=== PATIENT | female | born 1995 | race American Indian/Alaskan Native ===

== ENCOUNTER 2017-02-10 10:59 | Emergency (ER) | payer SELFPAY ==
--- NOTE | 2017-02-10 11:49 | Emergency Department Report ---
Stated Complaint: THROWING UP, ABD PAIN, FAINTING Time Seen by Provider: 02/10/17 11:47 - HPI History of Present Illness: PT reports intermittently vomiting liquid x weeks PT states her lmp was 4 months ago, hx of irregular period - ROS Review of Systems: + n/v + diarrhea - dysuria - Exam Physical Exam: PT looks well, non toxic thin abd soft and non tender MSE screening note: Focused history and physical exam performed. Due to findings the following was ordered: labs ED Disposition for MSE Condition: Stable
[2017-02-10 13:11] LABS: Basophils % (Auto) 0.2 % (0.0-1.8); Eosinophils % (Auto) 0.3 % (0.0-4.3); Hematocrit 34.7 % (30.3-42.9); Hemoglobin 11.5 gm/dl (10.1-14.3); Mean Corpuscular HGB Conc 33 % (30-34); Mean Corpuscular Hemoglobin 30 pg (28-32); Mean Corpuscular Volume 91 fl (79-97); Platelet Count 260 K/mm3 (140-440); Red Blood Count 3.83 M/mm3 (3.65-5.03); White Blood Count 6.5 K/mm3 (4.5-11.0)
[2017-02-10 13:23] LABS: Alanine Aminotransferase 13 units/L (7-56); Albumin/Globulin Ratio 1.1 %; Alkaline Phosphatase 51 units/L (35-129); Anion Gap 21 mmol/L; Blood Urea Nitrogen 5 mg/dL (7-17); Calcium 8.9 mg/dL (8.4-10.2); Carbon Dioxide 21 mmol/L (22-30); Chloride 97.5 mmol/L (98-107); Glucose 96 mg/dL (65-100); Lipase 48 units/L (13-60); Sodium 135 mmol/L (137-145); Total Protein 7.8 g/dL (6.3-8.2)
[2017-02-10 14:19] LABS: Bacteria,Urine 4+ /HPF (Negative); Bilirubin,Urine NEG (Negative); Blood,Urine NEG (Negative); Ketones,Urine 80 mg/dL (Negative); Leukocyte Esterase,Urine TR (Negative); Mucus,Urine 2+ /HPF; Nitrite,Urine POS (Negative)
--- NOTE | 2017-02-10 15:25 | Ultrasound Report ---
Gestation: single Position: BREECH Placenta: Rt. lateral Placental Grade: 1 Heart Rate: 152 BPM Cervical length: 3.1 cm (Normal > 3 cm) x It is too early for a anatomical survey The following are not demonstrated due to maternal body habitus or lie: BPD: 2.6 cm = 14 w 4 d HC: 9.6 cm = 14 w 3 d AC: 8.0 cm = 14 w 2 d FL: 1.5 cm = 14 w 3 d HC/AC Ratio: 1.2 Cephalic Index: 85.7 Estimated Weight: N/A grams US Gest. Age = 14 w 3 d EDC: 08/08/17
[2017-02-10] MEDS ORDERED: ZOFRAN ODT PO ONE (19:41)
[2017-02-10 20:00] VITALS: BP 101/71
--- NOTE | 2017-02-10 20:26 | Emergency Department Report ---
ED General Adult HPI - General Chief complaint: Nausea/Vomiting/Diarrhea Stated complaint: THROWING UP, ABD PAIN, FAINTING Time Seen by Provider: 02/10/17 11:47 Source: patient Mode of arrival: Ambulatory Limitations: No Limitations - History of Present Illness Initial comments: Patient is a 21-year-old female who presents for nausea and vomiting. Patient states that she has been vomiting for the last couple weeks. She states that she had some green vomit there is no blood. She states that she often vomits in the morning and she has some slight abdominal pain when she vomits. Patient is also at 14 weeks. Nothing makes her symptoms better or worse her vomiting is most often when she wakes up in the morning. Severity scale (0 -10): 0 - Related Data Previous Rx's Medication Instructions Recorded Last Taken Type oxyCODONE /ACETAMINOPHEN [Percocet 1 tab PO Q4HR #20 tab 11/25/15 Unknown Rx 5/325] Ondansetron [Zofran TAB] 4 mg PO Q8HR PRN #15 tablet 02/10/17 Unknown Rx Allergies Allergy/AdvReac Type Severity Reaction Status Date / Time No Known Allergies Allergy Verified 05/20/13 15:26 ED Review of Systems ROS: Stated complaint: THROWING UP, ABD PAIN, FAINTING Other details as noted in HPI Constitutional: denies: chills, fever Eyes: denies: eye pain, eye discharge, vision change ENT: denies: ear pain, throat pain Respiratory: denies: cough, shortness of breath, wheezing Cardiovascular: denies: chest pain, palpitations Endocrine: no symptoms reported Gastrointestinal: nausea, vomiting. denies: abdominal pain, diarrhea Genitourinary: denies: urgency, dysuria, discharge Musculoskeletal: denies: back pain, joint swelling, arthralgia Skin: denies: rash, lesions Neurological: denies: headache, weakness, paresthesias Psychiatric: denies: anxiety, depression Hematological/Lymphatic: denies: easy bleeding, easy bruising ED Past Medical Hx - Past Medical History Previous Medical History?: No Hx Hypertension: No Hx Congestive Heart Failure: No Hx Diabetes: No Hx Deep Vein Thrombosis: No Hx Renal Disease: No Hx Sickle Cell Disease: No Hx Seizures: No Hx Asthma: No Hx COPD: No Hx HIV: No - Surgical History Past Surgical History?: Yes Additional Surgical History: c section - Social History Smoking Status: Never Smoker Substance Use Type: None - Medications Home Medications: Home Medications Medication Instructions Recorded Confirmed Last Taken Type oxyCODONE /ACETAMINOPHEN [Percocet 1 tab PO Q4HR #20 tab 11/25/15 Unknown Rx 5/325] Ondansetron [Zofran TAB] 4 mg PO Q8HR PRN #15 tablet 02/10/17 Unknown Rx ED Physical Exam - General Limitations: No Limitations General appearance: alert, in no apparent distress - Head Head exam: Present: atraumatic, normocephalic - Eye Eye exam: Present: normal appearance - ENT ENT exam: Present: mucous membranes moist - Neck Neck exam: Present: normal inspection - Respiratory Respiratory exam: Present: normal lung sounds bilaterally. Absent: respiratory distress - Cardiovascular Cardiovascular Exam: Present: regular rate, normal rhythm. Absent: systolic murmur, diastolic murmur, rubs, gallop - GI/Abdominal GI/Abdominal exam: Present: soft, normal bowel sounds - Extremities Exam Extremities exam: Present: normal inspection - Back Exam Back exam: Present: normal inspection - Neurological Exam Neurological exam: Present: alert, oriented X3 - Psychiatric Psychiatric exam: Present: normal affect, normal mood - Skin Skin exam: Present: warm, dry, intact, normal color. Absent: rash ED Course Vital Signs 02/10/17 02/10/17 02/10/17 11:46 15:47 15:55 Temperature 97.8 F Pulse Rate 76 90 Respiratory 16 18 16 Rate Blood Pressure 102/71 Blood Pressure 102/61 [Right] O2 Sat by Pulse 100 100 Oximetry 02/10/17 19:58 Temperature 99.2 F Pulse Rate 88 Respiratory 18 Rate Blood Pressure Blood Pressure 101/71 [Right] O2 Sat by Pulse 100 Oximetry ED Medical Decision Making - Lab Data Result diagrams: 02/10/17 12:46 02/10/17 12:46 Lab Results 02/10/17 02/10/17 02/10/17 Range/Units 12:46 12:46 12:46 WBC 6.5 (4.5-11.0) K/mm3 RBC 3.83 (3.65-5.03) M/mm3 Hgb 11.5 (10.1-14.3) gm/dl Hct 34.7 (30.3-42.9) % MCV 91 (79-97) fl MCH 30 (28-32) pg MCHC 33 (30-34) % RDW 13.0 L (13.2-15.2) % Plt Count 260 (140-440) K/mm3 Lymph % (Auto) 13.6 (13.4-35.0) % [place] % (Auto) 7.8 H (0.0-7.3) % Eos % (Auto) 0.3 (0.0-4.3) % Baso % (Auto) 0.2 (0.0-1.8) % Lymph # 0.9 L (1.2-5.4) K/mm3 [place] # 0.5 (0.0-0.8) K/mm3 Eos # 0.0 (0.0-0.4) K/mm3 Baso # 0.0 (0.0-0.1) K/mm3 Seg Neutrophils % 78.1 H (40.0-70.0) % Seg Neutrophils # 5.1 (1.8-7.7) K/mm3 Sodium 135 L (137-145) mmol/L Potassium 4.0 (3.6-5.0) mmol/L Chloride 97.5 L (98-107) mmol/L Carbon Dioxide 21 L (22-30) mmol/L Anion Gap 21 mmol/L BUN 5 L (7-17) mg/dL Creatinine 0.5 L (0.7-1.2) mg/dL Estimated GFR > 60 ml/min BUN/Creatinine Ratio 10.00 % Glucose 96 (65-100) mg/dL Calcium 8.9 (8.4-10.2) mg/dL Total Bilirubin 0.50 (0.1-1.2) mg/dL AST 20 (5-40) units/L ALT 13 (7-56) units/L Alkaline Phosphatase 51 (35-129) units/L Total Protein 7.8 (6.3-8.2) g/dL Albumin 4.0 (3.9-5) g/dL Albumin/Globulin Ratio 1.1 % Lipase 48 (13-60) units/L HCG, Qual Positive (Negative) HCG, Quant (0-4) mIU/mL Urine Color (Yellow) Urine Turbidity (Clear) Urine pH (5.0-7.0) Ur Specific [place] (1.003-1.030) Urine Protein (Negative) mg/dL Urine Glucose (UA) (Negative) mg/dL Urine Ketones (Negative) mg/dL Urine Blood (Negative) Urine Nitrite (Negative) Urine Bilirubin (Negative) Urine Urobilinogen (<2.0) mg/dL Ur Leukocyte Esterase (Negative) Urine WBC (Auto) (0.0-6.0) /HPF Urine RBC (Auto) (0.0-6.0) /HPF U Epithel Cells (Auto) (0-13.0) /HPF Urine Bacteria (Auto) (Negative) /HPF Urine Mucus /HPF Blood Type 02/10/17 02/10/17 02/10/17 Range/Units 13:58 14:24 14:24 WBC (4.5-11.0) K/mm3 RBC (3.65-5.03) M/mm3 Hgb (10.1-14.3) gm/dl Hct (30.3-42.9) % MCV (79-97) fl MCH (28-32) pg MCHC (30-34) % RDW (13.2-15.2) % Plt Count (140-440) K/mm3 Lymph % (Auto) (13.4-35.0) % [place] % (Auto) (0.0-7.3) % Eos % (Auto) (0.0-4.3) % Baso % (Auto) (0.0-1.8) % Lymph # (1.2-5.4) K/mm3 [place] # (0.0-0.8) K/mm3 Eos # (0.0-0.4) K/mm3 Baso # (0.0-0.1) K/mm3 Seg Neutrophils % (40.0-70.0) % Seg Neutrophils # (1.8-7.7) K/mm3 Sodium (137-145) mmol/L Potassium (3.6-5.0) mmol/L Chloride (98-107) mmol/L Carbon Dioxide (22-30) mmol/L Anion Gap mmol/L BUN (7-17) mg/dL Creatinine (0.7-1.2) mg/dL Estimated GFR ml/min BUN/Creatinine Ratio % Glucose (65-100) mg/dL Calcium (8.4-10.2) mg/dL Total Bilirubin (0.1-1.2) mg/dL AST (5-40) units/L ALT (7-56) units/L Alkaline Phosphatase (35-129) units/L Total Protein (6.3-8.2) g/dL Albumin (3.9-5) g/dL Albumin/Globulin Ratio % Lipase (13-60) units/L HCG, Qual (Negative) HCG, Quant 02548 H (0-4) mIU/mL Urine Color Yellow (Yellow) Urine Turbidity Clear (Clear) Urine pH 5.0 (5.0-7.0) Ur Specific [place] 1.019 (1.003-1.030) Urine Protein 30 mg/dl (Negative) mg/dL Urine Glucose (UA) Neg (Negative) mg/dL Urine Ketones 80 (Negative) mg/dL Urine Blood Neg (Negative) Urine Nitrite Pos (Negative) Urine Bilirubin Neg (Negative) Urine Urobilinogen 2.0 (<2.0) mg/dL Ur Leukocyte Esterase Tr (Negative) Urine WBC (Auto) 4.0 (0.0-6.0) /HPF Urine RBC (Auto) 3.0 (0.0-6.0) /HPF U Epithel Cells (Auto) 24.0 H (0-13.0) /HPF Urine Bacteria (Auto) 4+ (Negative) /HPF Urine Mucus 2+ /HPF Blood Type AB POSITIVE - Medical Decision Making Chief medical diagnosis: Differential diagnosis: Urinary tract infection, hyperemesis gravidarum, metabolic abnormality I will get CBC, CMP, urinalysis oral antiemetic and I will get a transvaginal ultrasound Patient's lab work is unremarkable patient has a 14 she most likely has morning sickness also patient home with a prescription for Zofran and follow up with [facility]. She agrees with plan additional verbal discharge instructions were given. Patient has been able to tolerate by mouth trial after oral Zofran. Critical care attestation.: If time is entered above; I have spent that time in minutes in the direct care of this critically ill patient, excluding procedure time. ED Disposition Clinical Impression: Qualifiers: Weeks of gestation: 14 weeks Qualified Code(s): Z3A.14 - 14 weeks gestation of Nausea & vomiting Qualifiers: Vomiting type: unspecified Vomiting Intractability: non-intractable Qualified Code(s): R11.2 - Nausea with vomiting, unspecified Disposition: DC-01 TO HOME OR SELFCARE Is pt being admited?: No Does the pt Need Aspirin: No Condition: Stable Instructions: Morning Sickness (ED) Prescriptions: Ondansetron [Zofran TAB] 4 mg PO Q8HR PRN #15 tablet PRN Reason: Nausea Referrals: PRIMARY CARE, [Primary Care Provider] - 3-5 Days ENA LATIF MD [Staff Physician] - 3-5 Days
== END 2017-02-10 20:43 | disposition home or self-care (01) ==
LOC: ED 10:59
DX: O21.0 Mild hyperemesis gravidarum (principal); Z3A.14 14 weeks gestation of pregnancy
CPT/HCPCS: 36415; 76805; 80053; 81001; 83690; 84702; 84703; 85025; 86900; 86901; Q0162

== ENCOUNTER 2017-07-15 13:44 | Outpatient (CLI) | payer MEDICAID ==
[2017-07-15 14:03] VITALS: BP 82/52
== END 2017-07-15 14:30 | disposition home or self-care (01) ==
LOC: TRG 13:44
PROVIDERS: ATTEND Obstetrics & Gynecology
DX: O47.03 False labor before 37 completed weeks of gestation, third trimester (principal); Z3A.36 36 weeks gestation of pregnancy
CPT/HCPCS: 59025

== ENCOUNTER 2017-08-18 17:35 | Inpatient (IN) | payer MEDICAID ==
[2017-08-18 18:09] VITALS: BP 113/57
[2017-08-18 19:03] LABS: Bilirubin,Urine NEG (Negative); Blood,Urine MOD (Negative); Color,Urine Yellow (Yellow); Mucus,Urine FEW /HPF; Protein,Urine <15 mg/dL mg/dL (Negative); Urobilinogen,Urine < 2.0 mg/dL (<2.0)
[2017-08-18 20:03] LABS: Basophils % (Auto) 0.4 % (0.0-1.8); Eosinophils # (Auto) 0.1 K/mm3 (0.0-0.4); Eosinophils % (Auto) 3.1 % (0.0-4.3); Hematocrit 30.2 % (30.3-42.9); Hemoglobin 10.1 gm/dl (10.1-14.3); Lymphocytes # (Auto) 1.3 K/mm3 (1.2-5.4); Lymphocytes % (Auto) 26.9 % (13.4-35.0); Mean Corpuscular HGB Conc 34 % (30-34); Mean Corpuscular Hemoglobin 32 pg (28-32); Mean Corpuscular Volume 94 fl (79-97); Monocytes # (Auto) 0.4 K/mm3 (0.0-0.8); Monocytes % (Auto) 9.5 % (0.0-7.3); Platelet Count 304 K/mm3 (140-440); Red Blood Count 3.21 M/mm3 (3.65-5.03); Red Cell Distribution Width 17.6 % (13.2-15.2)
[2017-08-18] MEDS ORDERED: LACTATED RINGERS 1,000 ML ONE (20:10)
--- NOTE | 2017-08-18 20:15 | History and Physical Report ---
History of Present Illness Date of examination: 08/18/17 Chief complaint: 3rd Repeat History of present illness: Pt is a 21 yo at 41+2 weeks who presents with complaint of ruptured membranes, she is a [facility] patient. Essential history this patient with noncompliance with care desired a . She was previously counseled that due to her prior C-sections the risk of rupture would be elevated and repeat C- section was unlikely. Patient however insisted on and has only had 3-4 visits in the clinic. In triage today, BPP obtained is 8 out of 8 and LOIVIA is over 10. Tracing is category 1 Had a discussion with her and her partner about . Explained that the risk of rupture is now about ~ 4% due to her 2 prior C-sections. Explained that I usually do not offer VBACs after 2 prior C-sections. Did explain that some higher institutions with the residents and it support analyst may be willing to offer after 2 prior C-sections. Explained that due to the BPP and testing done, she is stable enough if she wishes to leave my care. She and her partner have decided to proceed with repeat . Did review the risks of surgery in detail including the increased risk of injury to surrounding organs and tissues. Currently denies vaginal bleeding plus movement Past History Past Medical History: no pertinent history, other (Sickle cell trait) Past Surgical History: section (x 2) AMBULATORY NURSE History: other (patient denies prior history of STDs). denies: chlamydia, gonorrhea, hepatitis B, hepatitis C, herpes, HIV Social history: single, full code. denies: Lives alone, lives with family, smoking, alcohol abuse, IV drug use - Obstetrical History Expected Date of Delivery: 08/09/17 Actual Gestation: 41 Week(s) 2 Day(s) : 3 Para: 2 Number of Living Children: 2 Medications and Allergies Allergies Allergy/AdvReac Type Severity Reaction Status Date / Time No Known Allergies Allergy Verified 05/20/13 15:26 Home Medications Medication Instructions Recorded Confirmed Last Taken Type oxyCODONE /ACETAMINOPHEN [Percocet 1 tab PO Q4HR #20 tab 11/25/15 Unknown Rx 5/325] Ondansetron [Zofran TAB] 4 mg PO Q8HR PRN #15 tablet 09/26/17 Unknown Rx Review of Systems Constitutional: no fever, no chills, no fatigue, no weakness, no lethargy, no chronic pain Eyes: no diplopia, no photophobia Cardiovascular: no chest pain, no orthopnea, no edema, no syncope, no lightheadedness, no shortness of breath, no dyspnea on exertion, no high blood pressure, no decreased exercise tolerance Respiratory: no cough, no cough with sputum, no excessive sputum, no shortness of breath, no dyspnea on exertion Gastrointestinal: no abdominal pain, no nausea, no vomiting Genitourinary: leakage of fluid, no vaginal bleeding, no vaginal discharge, no genital sores, no contractions - Vital Signs Vital signs: Vital Signs Pulse BP 96 H 113/57 08/18/17 18:12 08/18/17 18:12 Temp Pulse Resp BP Pulse Ox 96 H 113/57 08/18/17 18:12 08/18/17 18:12 - Physical Exam Abdomen: Positive: normal appearance, soft. Negative: distention, tenderness, guarding Genitourinary (Female): Positive: normal external genitalia Uterus: Positive: enlarged (EFW ~ 3600). Negative: tender Adnexa: both: normal Extremities: Positive: normal - Obstetrical FHR: category 1 Cervical Dilatation: 1 (Per RN check ) Results Result Diagrams: 08/18/17 19:46 Abnormal lab results 08/18/17 08/18/17 Range/Units 18:30 19:46 RBC 3.21 L (3.65-5.03) M/mm3 Hct 30.2 L (30.3-42.9) % RDW 17.6 H (13.2-15.2) % [place] % (Auto) 9.5 H (0.0-7.3) % Urine pH 8.0 H (5.0-7.0) Urine WBC (Auto) 13.0 H (0.0-6.0) /HPF All other labs normal. Assessment and Plan A: 21-year-old at 41+2 weeks with 2 prior C-sections -cat 1 tracing sono: BPP 8 out of 8, cephalic presentation, placenta lateral position with no sign of morbidly adherent placenta P: -Obtain routine labs -She has been consented -Proceed with third repeat once or available - Patient Problems (1) Post term at 41 weeks gestation Current Visit: Yes Status: Acute (2) History of 2 sections Current Visit: Yes Status: Acute (3) Non-compliant patient Current Visit: Yes Status: Acute (4) Limited care, antepartum Current Visit: Yes Status: Acute
[2017-08-18] MEDS ORDERED: PEPCID IV ONE (20:22)
[2017-08-18] MEDS ORDERED: BICITRA PO ONE (20:22)
[2017-08-18] MEDS ORDERED: REGLAN IV ONE (20:22)
--- NOTE | 2017-08-18 20:51 | Ultrasound Report ---
FINAL REPORT PROCEDURE: US OB LIMITED TECHNIQUE: Real-time limited sonographic examination was performed for evaluation of size, position, heartbeat, fluid volume for each fetus with image documentation (1 or more fetuses). CPT 66602 HISTORY: SROM/Post dates COMPARISON: No prior studies are available for comparison. FINDINGS: heart rate is 129 beats per minute. Amniotic fluid index is 13.9 centimeters. Fetus is in a cephalic presentation. IMPRESSION: heart rate is 129 beats per minute. Amniotic fluid index is 13.9 centimeters. Fetus is in a cephalic presentation.
[2017-08-18] MEDS ORDERED: LACTATED RINGERS 1,000 ML IV SCH (21:00)
[2017-08-18] MEDS ORDERED: PITOCin/NS 20 UNIT/1000ML DRIP 20 UNITS/1,000 ML BAG IV SCH (21:00)
[2017-08-18] MEDS ORDERED: ANCEF/STERILE WATER 2 GM/20 ML 2 GM/20 ML SYRINGE IV NR (21:00)
--- NOTE | 2017-08-18 21:02 | Ultrasound Report ---
FINAL REPORT PROCEDURE: US OB BPP WO NON-STRESS TECHNIQUE: Real-time limited sonographic examination was performed for evaluation of size, position, heartbeat, fluid volume for each fetus with image documentation (1 or more fetuses). CPT 06197 HISTORY: post dates COMPARISON: No prior studies are available for comparison. FINDINGS: breathing movements: 2. movements: 2. posterior and tone: 2. Qualitative amniotic fluid volume: 2. Total score: 8/8. heart rate 129 beats per minute. IMPRESSION: Normal biophysical profile.
--- NOTE | 2017-08-18 22:08 | Event Note ---
Date: 08/18/17 Called to speak to patient, her mother and her partner; resident in the room was charge nurse and RN taking care of the patient. Patient has decided against a at this time, claims she wants to postpone until tomorrow due to personal issues. We agreed and scheduled patient for a at 11: 30 tomorrow. Patient, however, states she has a very important appointment tomorrow by 11 and cannot be present for a scheduled at 11:30. She wants to know if she can have the performed after 11:30. Plan at this point is to have patient return to clinic tomorrow after her appointment to have an NST. We will then decide at that point whether to proceed with a repeat . She was counseled extensively about risks to the baby due to advanced gestational age and need for delivery as soon as possible.
== END 2017-08-18 22:15 | disposition home or self-care (01) | DRG 781 ==
LOC: TRG 17:35 → LD 17:36 → TRG 21:44 → LD 21:45
PROVIDERS: ADMIT Obstetrics & Gynecology; ATTEND Obstetrics & Gynecology
DX: O48.0 Post-term pregnancy (principal); O99.013 Anemia complicating pregnancy, third trimester; D57.3 Sickle-cell trait; Z3A.41 41 weeks gestation of pregnancy; Z53.29 Procedure and treatment not carried out because of patient's decision for other reasons
CPT/HCPCS: 36415; 76815; 76819; 81001; 85025; 86592; 86706; 86803; 86850; 86900; 86901; J7120